=== PATIENT | female | born 1985 | race Caucasian/White ===

== ENCOUNTER 2020-03-02 12:32 | Emergency (ER) | payer SELFPAY ==
[2020-03-02 13:09] VITALS: BP 102/63
[2020-03-02] MEDS ORDERED: METOCLOPRAMIDE HCL INJ/PF 10 MG/2 ML SDV IV ONE ×3 (13:21→16:25)
[2020-03-02] MEDS ORDERED: DIPHENHYDRAMINE HCL 50 MG/ML VIAL IV ONE ×3 (13:21→16:24)
[2020-03-02] MEDS ORDERED: KETOROLAC TROMETHAMINE INJ/PF 30 MG/1 ML SDV IV ONE ×2 (13:22→15:45)
--- NOTE | 2020-03-02 13:29 | ER Document Report ---
ED Medical Screen (RME) - General Chief Complaint: Headache Stated Complaint: HEADACHE Time Seen by Provider: 03/02/20 13:15 Mode of Arrival: Ambulatory Information source: Patient - HPI Notes: Patient is a 34 y/o female with a hx of migraine who presents with migraine headaches that began earlier this week. She states she has not had a migraine in 8 months and was well-managed with her medications but she has had three migraines this week and nothing has helped. She currently takes sumitriptan and another medication that she cannot recall the name. She reports nausea and v omiting which is typical of her migraines but states she had diarrhea this morning. She denies being around any sick contacts or anyone COVID+. Past Medical History - General Information source: Patient - Social History Cigarette use (# per day): Yes - 5 Neurological Medical History: Reports: Hx Migraine Psychiatric Medical History: Reports: Hx Bipolar Disorder, Hx Post Traumatic Stress Disorder, Hx Schizophrenia Past Surgical History: Reports: Hx Hysterectomy Physical Exam - Vital signs Vitals: Temp Pulse Resp BP Pulse Ox 98.6 F 81 18 102/63 100 03/02/20 13:09 03/02/20 13:09 03/02/20 13:09 03/02/20 13:09 03/02/20 13:09 - HEENT Pupils: PERRL - Respiratory Respiratory status: No respiratory distress Breath sounds: Normal - Cardiovascular Rhythm: Regular Heart sounds: Normal auscultation Course - Re-evaluation Re-evalutation: I have greeted and performed a rapid initial assessment of this patient. A comprehensive ED assessment and evaluation of the patient, analysis of test results and completion of medical decision making process will be conducted by an additional ED providers. - Vital Signs Vital signs: Temp Pulse Resp BP Pulse Ox 98.6 F 81 18 102/63 100 03/02/20 13:09 03/02/20 13:09 03/02/20 13:09 03/02/20 13:09 03/02/20 13:09
[2020-03-02 14:25] LABS: APPEARANCE,URINE SLIGHTLY-CLOUDY; BILIRUBIN,URINE NEGATIVE (NEGATIVE); COLOR,URINE YELLOW; GLUCOSE, URINE NEGATIVE (NEGATIVE); KETONES,URINE NEGATIVE (NEGATIVE); LEUKOCYTE ESTERASE,URINE NEGATIVE (NEGATIVE); NITRITE,URINE NEGATIVE (NEGATIVE); PROTEIN,URINE NEGATIVE (NEGATIVE); URINE SPECIFIC GRAVITY 1.016; UROBILINOGEN,URINE NEGATIVE mg/dL (<2.0)
[2020-03-02 15:19] LABS: ABSOLUTE BASOPHILS # (AUTO) 0.1 10^3/uL (0.0-0.2); ABSOLUTE EOSINOPHILS # (AUTO) 0.1 10^3/uL (0.0-0.6); ABSOLUTE MONOCYTES (AUTO) 0.5 10^3/uL (0.1-1.4); ABSOLUTE NEUT (AUTO) 3.6 10^3/uL (1.7-8.2); EOSINOPHILS % (AUTO) 1.7 % (0-6); HEMATOCRIT 44.7 % (36.0-47.0); HEMOGLOBIN 15.3 g/dL (12.0-15.5); LYMPHOCYTES % (AUTO) 41.4 % (13-45); MEAN CORPUSCULAR HEMOGLOBIN 31.6 pg (27.0-33.4); MEAN CORPUSCULAR HGB CONC 34.3 g/dL (32.0-36.0); MEAN CORPUSCULAR VOLUME 92 fl (80-97); MONOCYTES % (AUTO) 6.6 % (3-13); PLATELET COUNT 277 10^3/uL (150-450); RED BLOOD COUNT 4.85 10^6/uL (3.72-5.28); RED CELL DISTRIBUTION WIDTH 13.1 % (11.5-14.0); SEGMENTED NEUTROPHILS % (AUTO) 49.3 % (42-78); TOTAL CELLS COUNTED % (AUTO) 100 %; WHITE BLOOD COUNT 7.2 10^3/uL (4.0-10.5)
[2020-03-02 15:36] LABS: ALBUMIN 5.1 g/dL (3.5-5.0); ALKALINE PHOSPHATASE 82 U/L (38-126); ANION GAP 11 (5-19); ASPARTATE AMINO TRANSFERASE 33 U/L (14-36); BILIRUBIN,DIRECT 0.1 mg/dL (0.0-0.4); BILIRUBIN,TOTAL 0.5 mg/dL (0.2-1.3); BLOOD UREA NITROGEN 14 mg/dL (7-20); CALCIUM 10.4 mg/dL (8.4-10.2); CARBON DIOXIDE 24 mmol/L (22-30); CHLORIDE 106 mmol/L (98-107); GLUCOSE 94 mg/dL (75-110); POTASSIUM 4.5 mmol/L (3.6-5.0); TOTAL PROTEIN 8.8 g/dL (6.3-8.2)
[2020-03-02] MEDS ORDERED: NORMAL SALINE 500 ML IV ONE (15:42)
--- NOTE | 2020-03-02 15:47 | ER Document Report ---
ED Headache - General Chief Complaint: Headache Stated Complaint: HEADACHE Time Seen by Provider: 03/02/20 13:15 Mode of Arrival: Ambulatory Notes: Patient with chronic migraines from [place] on several prophylactic medications for long history of migraines presents with several days of headache frontal and holocephalic mildly pulsatile with photophobia nausea no vomiting no neck stiffness or fever similar to past migraines. Logic symptoms. Sumatriptan. Does not have primary care or neurology in [place]. No trauma. - Related Data Allergies/Adverse Reactions: No Known Allergies Allergy (Unverified 03/02/20 15:33) Home Medications: Sumatriptin Past Medical History - General Information source: Patient - Social History Smoking Status: Current Every Day Smoker Cigarette use (# per day): Yes - 5 Chew tobacco use (# tins/day): No Frequency of alcohol use: None Drug Abuse: Marijuana Family History: None Neurological Medical History: Reports: Hx Migraine Psychiatric Medical History: Reports: Hx Bipolar Disorder, Hx Post Traumatic Stress Disorder, Hx Schizophrenia Past Surgical History: Reports: Hx Hysterectomy Review of Systems - Review of Systems Notes: REVIEW OF SYSTEMS GEN: Denies fever, chills, weight loss ENT: Denies sore throat, nasal discharge, ear pain EYES: Photophobia, denies blurry vision, eye pain, discharge CV: Denies chest pain, palpitations, edema RESP: Denies cough, shortness of breath, wheezing GI:, Denies abdominal pain MSK: Denies joint pain/swelling, edema, SKIN: Denies rash, skin lesions LYMPH: Denies swollen glands/lymph nodes NEURO:, Focal weakness or numbness, dizziness PSYCH: Denies depression, suicidal or homicidal ideation PHYSICAL EXAMINATION General: No acute distress, well-nourished Head: Atraumatic, normocephalic ENT: Mouth normal, oropharynx moist, no exudates or tonsillar enlargement Eyes: Conjunctiva normal, pupils equal, lids normal Neck: No JVD, supple, no guarding CVS: Normal rate, regular rhythm, no murmurs Resp: No resp distress, equal and normal breath sounds bilaterally GI: Nondistended, soft, no tenderness to palpation, no rebound or guarding Ext: No deformities, no edema, normal range of motion in upper and lower ext Back: No CVA or midline TTP Skin: No rash, warm Lymphatic: No lymphadeopathy noted Neuro: Awake, alert. Face symmetric. GCS 15. Normal [id number], gait, strength in upper and lower extremities. Cranial nerves normal language fluent speech intact memory intact. Physical Exam - Vital signs Vitals: Temp Pulse Resp BP Pulse Ox 98.6 F 81 18 102/63 100 03/02/20 13:09 03/02/20 13:09 03/02/20 13:09 03/02/20 13:09 03/02/20 13:09 Course - Re-evaluation Re-evalutation: 03/02/20 15:45 Migraine similar to prior no red flags no fever no neck stiffness no focal neurologic deficits Migraine cocktail, fluids, will discharge with referral to neurology and primary care I have discussed with the patient there likely diagnosis, aftercare plan, follow-up plans and my usual and customary return precautions. They verbalized understanding of this. - Vital Signs Vital signs: Temp Pulse Resp BP Pulse Ox 98.6 F 81 18 102/63 100 03/02/20 13:09 03/02/20 13:09 03/02/20 13:09 03/02/20 13:09 03/02/20 13:09 - Laboratory Result Diagrams: 03/02/20 15:07 03/02/20 15:07 Laboratory results interpreted by me: 03/02/20 15:07 Calcium 10.4 H Total Protein 8.8 H Albumin 5.1 H Discharge - Discharge Clinical Impression: Migraine Qualifiers: Migraine type: unspecified Status migrainosus presence: without status migrainosus Intractability: not intractable Qualified Code(s): G43.909 - Migraine, unspecified, not intractable, without status migrainosus Condition: Good Disposition: HOME, SELF-CARE Instructions: Intravenous Compazine for Headaches ([facility]), Headache ([facility]) Referrals: [facility] [Provider Group] - Follow up as needed ANDRES CEE MD [NO LOCAL MD] - Follow up in 1 week ([facility] for migraine headaches)
[2020-03-02] MEDS ORDERED: KETOROLAC TROMETHAMINE INJ/PF 30 MG/1 ML SDV ONE (16:00)
== END 2020-03-02 17:09 | disposition home or self-care (01) ==
LOC: ER 12:32
DX: G43.909 Migraine, unspecified, not intractable, without status migrainosus (principal); F17.210 Nicotine dependence, cigarettes, uncomplicated
CPT/HCPCS: 99284; 96361; 96374; 96375; 36415; 85025; 80053; 81001; J1200; J1885; J2765; J7040

== ENCOUNTER 2020-04-21 16:32 | Emergency (ER) | payer OTHER ==
--- NOTE | 2020-04-21 17:07 | ER Document Report ---
ED Medical Screen (RME) - General Chief Complaint: Chest Pain Stated Complaint: CHEST PAIN Time Seen by Provider: 04/21/20 16:47 Primary Care Provider: PEDRO MCDANIELS [Primary Care Provider] - Follow up as needed - [facility] Notes: Patient is a 34 y/o female with a hx schizophrenia, bipolar, ancxiety and depression who presents with chest pain that began two hours ago. Patient describes the pain as pressure-like that is substernal. She reports shortness of breath but denies cough and abdominal pain. Patient reports a hx of panic attacks but states this is unlike her past episodes. She reports taking xanax prior to arrival. - Related Data Allergies/Adverse Reactions: No Known Allergies Allergy (Unverified 03/02/20 15:33) Past Medical History Neurological Medical History: Reports: Hx Migraine Psychiatric Medical History: Reports: Hx Bipolar Disorder, Hx Post Traumatic Stress Disorder, Hx Schizophrenia Past Surgical History: Reports: Hx Hysterectomy Physical Exam - Vital signs Vitals: Temp Pulse Resp BP Pulse Ox 98.1 F 90 22 H 119/61 100 04/21/20 16:43 04/21/20 16:43 04/21/20 16:43 04/21/20 16:43 04/21/20 16:43 - Respiratory Respiratory status: No respiratory distress Breath sounds: Normal - Cardiovascular Rhythm: Regular Heart sounds: Normal auscultation Course - Re-evaluation Re-evalutation: I have greeted and performed a rapid initial assessment of this patient. A comprehensive ED assessment and evaluation of the patient, analysis of test results and completion of medical decision making process will be conducted by an additional ED providers. - Vital Signs Vital signs: Temp Pulse Resp BP Pulse Ox 98.1 F 90 22 H 119/61 100 04/21/20 16:43 04/21/20 16:43 04/21/20 16:43 04/21/20 16:43 04/21/20 16:43 Doctor's Discharge - Discharge Referrals: PEDRO MCDANIELS [Primary Care Provider] - Follow up as needed
[2020-04-21 17:42] LABS: ABSOLUTE BASOPHILS # (AUTO) 0.1 10^3/uL (0.0-0.2); ABSOLUTE EOSINOPHILS # (AUTO) 0.1 10^3/uL (0.0-0.6); ABSOLUTE LYMPHOCYTES (AUTO) 3.6 10^3/uL (0.5-4.7); ABSOLUTE MONOCYTES (AUTO) 0.7 10^3/uL (0.1-1.4); ABSOLUTE NEUT (AUTO) 5.5 10^3/uL (1.7-8.2); EOSINOPHILS % (AUTO) 1.3 % (0-6); HEMATOCRIT 39.2 % (36.0-47.0); HEMOGLOBIN 13.4 g/dL (12.0-15.5); LYMPHOCYTES % (AUTO) 35.7 % (13-45); MEAN CORPUSCULAR HEMOGLOBIN 30.6 pg (27.0-33.4); MEAN CORPUSCULAR HGB CONC 34.2 g/dL (32.0-36.0); MEAN CORPUSCULAR VOLUME 90 fl (80-97); MONOCYTES % (AUTO) 6.9 % (3-13); PLATELET COUNT 277 10^3/uL (150-450); RED BLOOD COUNT 4.37 10^6/uL (3.72-5.28); RED CELL DISTRIBUTION WIDTH 13.5 % (11.5-14.0); SEGMENTED NEUTROPHILS % (AUTO) 55.1 % (42-78); TOTAL CELLS COUNTED % (AUTO) 100 %
--- NOTE | 2020-04-21 17:44 | RADIOLOGY REPORT (SQ) ---
EXAM DESCRIPTION: CHEST SINGLE VIEW IMAGES COMPLETED DATE/TIME: 04/21/2020 4:28 pm REASON FOR STUDY: chest pain COMPARISON: None. EXAM PARAMETERS: NUMBER OF VIEWS: One view. TECHNIQUE: Single frontal radiographic view of the chest acquired. RADIATION DOSE: NA LIMITATIONS: None. FINDINGS: LUNGS AND PLEURA: No opacities, masses or pneumothorax. No pleural effusion. MEDIASTINUM AND HILAR STRUCTURES: No masses. Contour normal. HEART AND VASCULAR STRUCTURES: Heart normal in size. Normal vasculature. BONES: No acute findings. HARDWARE: None in the chest. OTHER: No other significant finding. IMPRESSION: NO ACUTE RADIOGRAPHIC FINDING IN THE CHEST. TECHNICAL DOCUMENTATION: JOB ID: [id number] [employer]- All Rights Reserved Reading location - IP/workstation name: [email or web address]
[2020-04-21 18:01] LABS: ALBUMIN 4.9 g/dL (3.5-5.0); ALKALINE PHOSPHATASE 77 U/L (38-126); ANION GAP 9 (5-19); ASPARTATE AMINO TRANSFERASE 34 U/L (14-36); BILIRUBIN,DIRECT 0.3 mg/dL (0.0-0.4); BILIRUBIN,TOTAL 0.8 mg/dL (0.2-1.3); BLOOD UREA NITROGEN 13 mg/dL (7-20); CALCIUM 10.3 mg/dL (8.4-10.2); CARBON DIOXIDE 26 mmol/L (22-30); CHLORIDE 103 mmol/L (98-107); GLUCOSE 90 mg/dL (75-110); POTASSIUM 4.3 mmol/L (3.6-5.0); TOTAL PROTEIN 8.5 g/dL (6.3-8.2)
[2020-04-21] MEDS ORDERED: ASPIRIN 325 MG TABLET PO ONE (19:04)
--- NOTE | 2020-04-21 19:14 | ER Document Report ---
ED General - General Chief Complaint: Chest Pain Stated Complaint: CHEST PAIN Time Seen by Provider: 04/21/20 16:47 Primary Care Provider: PEDRO MCDANIELS [NO LOCAL MD] - Follow up as needed Notes: HPI: 34-year-old female with past medical history as recorded who presents today with the onset of some substernal chest discomfort. She states it feels as if she has a "pressure". She states it hurts when she stands upright and when she presses the area. No fever, cough, shortness of breath. No calf pain or leg swelling. No recent trips or travel. Patient does not smoke. She is on no estrogen therapy. No family history of early heart attacks or strokes. ROS: See HPI All other review of systems reviewed and otherwise negative Reviewed vital signs and nursing note as charted by RN. PHYSICAL EXAM: CONSTITUTIONAL: Alert and oriented and responds appropriately to questions. Well-appearing; well-nourished HEAD: Normocephalic; atraumatic CARD: Regular rate and rhythm; no murmurs; symmetric distal pulses RESP: Normal chest excursion without splinting or tachypnea; breath sounds clear and equal bilaterally; some tenderness to palpation of the anterior chest wall with no swelling, erythema, or crepitus no wheezes, no rhonchi, no rales ABD/GI: Normal bowel sounds; non-distended; soft, non-tender; no palpable organomegaly or masses BACK: The back appears normal and is non-tender to palpation EXT: Normal ROM in all joints; non-tender to palpation; no edema SKIN: No acute lesions noted NEURO: CN 2-12 intact; 5/5 bilateral upper and lower extremity strength with sensation intact to light touch PSYCH: The patient's mood and manner are appropriate. Grooming and personal hygiene are appropriate. - Related Data Allergies/Adverse Reactions: No Known Allergies Allergy (Unverified 03/02/20 15:33) Home Medications: minipress. Wellbutrin. Varlar. Xanax Past Medical History - Social History Smoking Status: Former Smoker Chew tobacco use (# tins/day): No Frequency of alcohol use: Rare Drug Abuse: None Family History: None Neurological Medical History: Reports: Hx Migraine Psychiatric Medical History: Reports: Hx Bipolar Disorder, Hx Post Traumatic Stress Disorder, Hx Schizophrenia Past Surgical History: Reports: Hx Hysterectomy Physical Exam - Vital signs Vitals: Temp Pulse Resp BP Pulse Ox 98.1 F 90 22 H 119/61 100 04/21/20 16:43 04/21/20 16:43 04/21/20 16:43 04/21/20 16:43 04/21/20 16:43 Course - Re-evaluation Re-evalutation: Given the above history and physical examination this well-appearing female with some reproducible chest pain with a history of anxiety, no calf pain or leg swelling, no tachypnea or hypoxia, no tachycardia, normal sinus rhythm on EKG, minimal risk factors with a heart score of 0 if the troponin is negative, I will obtain a cardiac panel, x-ray of the chest, and reassess. 04/21/20 19:13 EKG shows a heart rate of 93, normal sinus rhythm, normal axis, no ST elevation or depression. 04/21/20 19:39 Labs, imaging, x-ray of the chest, as recorded. No change in exam. Not tachyc ardic or hypoxic. Patient will be discharged home with strict return precautions and follow-up with the primary care physician. - Vital Signs Vital signs: Temp Pulse Resp BP Pulse Ox 97.8 F 90 10 L 108/77 100 04/21/20 19:32 04/21/20 16:43 04/21/20 19:01 04/21/20 19:01 04/21/20 19:01 - Laboratory Results Result Diagrams: 04/21/20 17:20 04/21/20 17:20 Laboratory Results Interpreted: 04/21/20 17:20 Calcium 10.3 H Total Protein 8.5 H Critical Laboratory Results Reviewed: No Critical Results - Radiology Results Critical Radiology Results Reviewed: No Critical Results Discharge - Discharge Clinical Impression: Chest wall pain Condition: Good Disposition: HOME, SELF-CARE Additional Instructions: Come back immediately for any worsening pain, change in location or quality of pain, fevers or vomiting, leg swelling, or any other acute problems. Please follow-up with the primary care physician as needed. Please take 600 mg of ibuprofen every 6 hours for the next 5 days as needed for pain. Referrals: LOCALMD,NO [NO LOCAL MD] - Follow up as needed
[2020-04-21 20:00] VITALS: BP 107/66
--- NOTE | 2020-04-21 22:42 | EKG REPORT ---
SEVERITY:- ABNORMAL ECG - SINUS RHYTHM : Confirmed by: Son Del Real 21-Apr-2020 22:42:12
== END 2020-04-21 20:08 | disposition home or self-care (01) ==
LOC: ER 16:32
DX: R07.89 Other chest pain (principal)
CPT/HCPCS: 36415; 71045; 80053; 84443; 84484; 85025; 93005; 93010; 99285